=== PATIENT | male | born 1960 | race Caucasian/White ===

== ENCOUNTER 2017-10-19 08:07 | Day surgery (SDC) | payer MEDICARE, BC ==
[~2017-10-19 08:07] MED LIST: LIDOCAINE HCL 1% MPF SOL ONE; PROPOFOL 500 MG/50 ML EMU IV ONE
[2017-10-19 10:12] VITALS: BP 127/89; PULSE 52; RESP 20; TEMP 96.6; O2SAT 95
== END 2017-10-19 10:36 | disposition home or self-care (01) | DRG 392 ==
LOC: SURG 08:07
PROVIDERS: ATTEND Surgery
DX: K21.9 Gastro-esophageal reflux disease without esophagitis (principal); K22.70 Barrett's esophagus without dysplasia
CPT/HCPCS: J2001; J2704

== ENCOUNTER 2018-08-29 09:04 | Day surgery (SDC) | payer MEDICARE, BC ==
[~2018-08-29 09:04] MED LIST changes: +LIDOCAINE HCL 1% MPF 30 SOL ONE; -LIDOCAINE HCL 1% MPF SOL ONE
[2018-08-29 11:08] VITALS: TEMP 97.9
[2018-08-29 12:06] VITALS: BP 128/89; PULSE 65; RESP 18; O2SAT 94
== END 2018-08-29 12:22 | disposition home or self-care (01) | DRG 392 ==
LOC: SURG 09:04
PROVIDERS: ATTEND Internal Medicine Gastroenterology
DX: R10.9 Unspecified abdominal pain (principal); Q39.9 Congenital malformation of esophagus, unspecified; K44.9 Diaphragmatic hernia without obstruction or gangrene; L53.8 Other specified erythematous conditions; K29.70 Gastritis, unspecified, without bleeding
CPT/HCPCS: J2001; J2704